=== PATIENT | female | born 1985 | race Caucasian/White ===

== ENCOUNTER 2016-04-05 14:57 | Outpatient (CLI) | payer BC ==
--- NOTE | 2016-04-05 16:11 | DIAGNOSTIC IMAGING REPORT ---
PROCEDURE: US OB 1ST TRIMESTER W/TRANSVAG INDICATION: SIZE AND DATES TECHNIQUE: Singer scale, color, and spectral Doppler transabdominal sonographic images of the first trimester gravid uterus were obtained. COMPARISON: None. FINDINGS: TRANSABDOMINAL SCANS: The gravid uterus is anteverted in position and contains a fundal gestational sac with a moderate residual response. No perigestational hemorrhage. The cervix measures 4.5 cm A pole with an average crown-rump length of 4 mm at 6 weeks and 0 days is present. There is detectable cardiac activity in the fetus at a rate of 117 beats per minute. A yolk sac was visible. Maternal ovaries appear normal with a corpus luteum cyst visualized on the right ovary. Flow was noted in the both ovaries and there is fluid around the left adnexa. IMPRESSION: 1. Single living intrauterine with gestational age of 6 weeks and 0 days and estimated due date of 11/29/2016 2. Closed cervix and no perigestational hemorrhage.
== END 2016-04-05 23:00 ==
LOC: US SRH 14:57
DX: Z34.91 Encounter for supervision of normal pregnancy, unspecified, first trimester (principal); Z3A.01 Less than 8 weeks gestation of pregnancy